=== PATIENT | male | born 1965 | race Caucasian/White ===

== ENCOUNTER → 2024-01-08 | Outpatient (CLI) | payer OTHER ==
--- NOTE | 2024-01-08 22:26 | US ---
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 This may contain a small echogenic nodule b ut otherwise has a simple appearance. Left Kidney: wnl Bladder: Anechoic Bilateral Jets seen: Yes Normal Post Void Residual: Yes IMPRESSION: Large cyst inferior pole right kidney with small internal echogenic nodule. Monitoring is recommended .
== END | disposition home or self-care (01) ==
LOC: RADUSWWP 15:46
PROVIDERS: ATTEND Family Medicine
DX: N28.1 Cyst of kidney, acquired (principal)
CPT/HCPCS: 76770

== ENCOUNTER 2024-07-10 10:42 | Day surgery (SDC) | payer OTHER ==
--- NOTE | 2024-07-08 14:34 | P.PN ---
Progress Note - Text Progress Note Date: 07/08/24 Labs from outside facility reviewed with elevated WBC for possible infection. I called and left message that infection is contraindicated for surgery and may need to be rescheduled. May opt for repeat CBC on day of procedure. If WBC still elevated, case will need to be rescheduled
--- NOTE | 2024-07-09 08:55 | P.PN ---
Progress Note - Text Progress Note Date: 07/09/24 Patient contacted at home. Patient has history of persistent elevated white blood cell count since 2009. He has seen specialist regarding his persistent leukocytosis. Patient also confirms multiple instrumentation with back surgery with pre-existing history of elevated white blood cell count. Patient denies any active flu, urinary tract infection, chronic cough. Will repeat CBC for his baseline between 13,000-14,000. Overall, patient agreeable to proceed with surgery with his pre-existing elevated white blood count.
--- NOTE | 2024-07-10 06:30 | P.GSHP ---
History of Present Illness H&P Date: 07/10/24 CHIEF COMPLAINT: Ventral hernia HISTORY OF PRESENT ILLNESS: The patient is a 58-year-old male presents with a history of swelling and pain along the abdomen from a hernia of the abdomen. Symptoms have been present for over 6 months. Incidentally, patient has persistent elevated white blood cell count which has been previously assessed by specialist. Now he presents for surgical intervention. PAST MEDICAL HISTORY: Please see list. PAST SURGICAL HISTORY: Please see list. MEDICATIONS: Please see list. ALLERGIES: Please see list. SOCIAL HISTORY: No illicit drug use FAMILY HISTORY: No reports of Crohn disease or ulcerative colitis. REVIEW OF ORGAN SYSTEMS: CONSTITUTIONAL: Denies any fever or chills. Denies recent weight loss or weight gain. HEENT: Denies any trouble with vision, hearing or nosebleeds. No difficulty swallowing. LYMPHATIC: The patient denies any lumps and bumps around the neck. ENDOCRINE: Denies any thyroid disorders. Denies any blood sugar glucose intolerance. RESPIRATORY: Denies pneumonia. Denies any troubles with breathing or dyspnea on exertion. CARDIOVASCULAR: Denies any chest pain, palpitations, or recent heart attacks. GASTROINTESTINAL: Denies heart burn, constipation or bright red blood per rectum. GENITOURINARY: Denies any blood in urine or increased urinary frequency. MUSCULOSKELETAL: Denies any back pain, stiffness, joint arthritis. NEUROLOGIC: Denies any numbness or tingling along the distal extremities. No se izure disorders or headaches. PSYCHIATRIC: Denies depression or suidical ideation. HEMATOLOGIC: Denies any abnormal bleeding or bruising. BREASTS: Denies any breast lumps, pain or nipple discharge. PHYSICAL EXAM: GENERAL: Well-developed pleasant male in no acute distress. HEENT: No scleral icterus. Extraocular movements grossly intact. Moist buccal mucosa. NECK: Supple without lymphadenopathy. CHEST: Unlabored respirations. Equal bilateral excursions. CARDIOVASCULAR: Regular rate and rhythm. Distal 2+ pulses. ABDOMEN: Soft, nondistended. Palpable defect of the abdomen. No peritoneal signs. MUSCULOSKELETAL: No clubbing, cyanosis, or edema. SKIN: Well perfused. PSYCH: Alert and oriented to self, place and time ASSESSMENT: 1. Ventral hernia 2. Persistent leukocytosis PLAN: 1. Recommend proceeding with robotic ventral hernia repair with mesh. 2. Benefits and risks of surgical intervention was discussed including possibility of open technique. 3. DVT prophylaxis. 4. Antibiotic prophylaxis. 5. Non narcotic pain management including abdominal wall block described 6. Blood sugar glucose described. 7. Weight loss management described. 8. EKG reviewed unremarkable 9. Repeat CBC and CMP on day of procedure 10. Flomax for prevention of urinary retention Past Medical History Past Medical History: GERD/Reflux, Osteoarthritis (OA), Skin Disorder Additional Past Medical History / Comment(s): ventral hernia. treated since 2008 for skin issues. on doxycycline prn . 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 chronic mildlly elevated WBC. History of Any Multi-Drug Resistant Organisms: MRSA Date of last positivie culture/infection: 2008 MDRO Source:: back Past Surgical History: Back Surgery, Heart Catheterization Additional Past Surgical History / Comment(s): 2 egds. TENS unit placed and removed due to MRSA. per cardiology hx pt had heart cath 2018 in [facility] Past Anesthesia/Blood Transfusion Reactions: No Reported Reaction Additional Past Anesthesia/Blood Transfusion Reaction / Comment(s): no blood transfusions. Smoking Status: Former smoker - Past Family History Mother Family Medical History: Coronary Artery Disease (CAD) Father Family Medical History: Coronary Artery Disease (CAD) Sister(s) Family Medical History: Coronary Artery Disease (CAD) Medications and Allergies Home Medications Medication Instructions Recorded Confirmed Type Acetaminophen Tab [Tylenol] 325 mg PO DIRECTED PRN 07/06/24 07/06/24 History Doxycycline [Vibramycin] 50 mg PO Q12HR PRN 07/06/24 07/06/24 History Omeprazole 40 mg PO DAILY 07/06/24 07/06/24 History Unk Folic Acid 1 tab PO DAILY 07/06/24 07/06/24 History Unk Iron 1 tab PO DAILY 07/06/24 07/06/24 History Unk Vitamin C 1 tab PO DAILY 07/06/24 07/06/24 History Unk Vitamin D 1 tab PO DAILY 07/06/24 07/06/24 History Allergies Allergy/AdvReac Type Severity Reaction Status Date / Time No Known Allergies Allergy Verified 07/06/24 11:39
[2024-07-10] MEDS: IV FLUID CONTINUATION 1,000 ML IV ONE ×2 (11:21→15:22)
[2024-07-10] MEDS: LACTATED RINGERS 1,000 ML IV SCH (11:34)
[2024-07-10] MEDS: MIDAZOLAM 2 MG/2 ML VIAL IV PRN (11:36)
[2024-07-10] MEDS: MELOXICAM 7.5 MG TAB PO PRN (11:43)
[2024-07-10] MEDS: TAMSULOSIN 0.4 MG CAP.ER.24H PO STA (11:43)
[2024-07-10] MEDS: ACETAMINOPHEN TAB 500 MG TAB PO PRN (11:43)
[2024-07-10] MEDS: HEPARIN SODIUM,PORCINE 5,000 UNIT/ML 1 ML VIAL SQ PRN (11:44)
[2024-07-10] MEDS: ONDANSETRON 4 MG/2 ML VIAL IVP PRN (11:44)
[2024-07-10] MEDS ORDERED: SODIUM CHLORIDE 0.9% (PF) 10 ML VIAL ONE (11:54)
[2024-07-10] MEDS ORDERED: PROPOFOL 10 MG/ML 20 ML VIAL IV ONE (11:54)
[2024-07-10] MEDS ORDERED: LIDOCAINE 1% INJ 10MG/ML (20 ML MDV) ONE (11:54)
[2024-07-10] MEDS ORDERED: HYDROmorphone (PF) 1 MG/ML ONE (11:54)
[2024-07-10] MEDS ORDERED: ROCURONIUM 10 MG/ML (5 ML VIAL) IV ONE (11:54)
[2024-07-10] MEDS ORDERED: fentaNYL (PF) 50 MCG/ML 2 ML AMP ONE (11:54)
[2024-07-10] MEDS ORDERED: ePHEDrine 50 MG/ML 1 ML VIAL ONE (11:54)
[2024-07-10] MEDS ORDERED: GLYCOPYRROLATE 0.2 MG/ML 2 ML VIAL ONE (11:54)
[2024-07-10] MEDS ORDERED: ROPIVACAINE 5 MG/ML 30 ML VIAL ONE (11:54)
[2024-07-10] MEDS ORDERED: NEOSTIGMINE 1 MG/ML 10 ML VIAL ONE (11:54)
[2024-07-10] MEDS ORDERED: DEXAMETHASONE SOD PHOSPHATE 4 MG/ML 1 ML VIAL ONE (11:54)
[2024-07-10] MEDS ORDERED: KETOROLAC 15 MG/ML 1 ML VIAL ONE (11:54)
[2024-07-10] MEDS ORDERED: SUCCINYLCHOLINE CHLORIDE 200 MG/10 ML VIAL IV ONE (11:54)
[2024-07-10 12:00] LABS: Basophils # (A) 0.1 k/uL (0-0.2); Basophils % (A) 1 %; Eosinophils # (A) 0.6 k/uL (0-0.7); Eosinophils % (A) 4 %; HCT 51.3 % (39.0-53.0); HGB 17.2 gm/dL (13.0-17.5); Lymphocytes # (A) 2.1 k/uL (1.0-4.8); Lymphocytes % (A) 16 %; MCH 32.4 pg (25.0-35.0); MCHC 33.6 g/dL (31.0-37.0); MCV 96.4 fL (80.0-100.0); Mean Platelet Volume 8.4; Monocytes # (A) 0.5 k/uL (0-1.0); Monocytes % (A) 4 %; Neutrophils # (A) 10.2 k/uL (1.3-7.7); Neutrophils % (A) 74 %; Platelet Count 279 k/uL (150-450); RBC 5.32 m/uL (4.30-5.90); RDW 13.5 % (11.5-15.5); WBC 13.7 k/uL (3.8-10.6)
[2024-07-10 12:04] LABS: ALT 19 U/L (4-49); African American GFR (CKD) >90 (>60 ml/min/1.73 sqM); Albumin 4.6 g/dL (3.5-5.0); Anion Gap 7 mmol/L; Blood Urea Nitrogen 11 mg/dL (9-20); Calcium 9.7 mg/dL (8.4-10.2); Carbon Dioxide 24 mmol/L (22-30); Chloride 108 mmol/L (98-107); Glucose 92 mg/dL (74-99); Non-African American GFR(CKD) >90 (>60 ml/min/1.73 sqM); Sodium 139 mmol/L (137-145); Total Bilirubin 0.7 mg/dL (0.2-1.3); Total Protein 7.2 g/dL (6.3-8.2)
[2024-07-10 12:07] LABS: Potassium 4.5 mmol/L (3.5-5.1)
[2024-07-10 12:08] LABS: AST 25 U/L (17-59); Alkaline Phosphatase 71 U/L (38-126)
--- NOTE | 2024-07-10 12:34 | P.ANPRN ---
Procedure Note - Anesthesia - Nerve Block Performed Bilateral Erector Spinae Single Time Out Performed: Yes Date of Procedure: 07/10/24 Procedure Start Time: :36 Procedure Stop Time: :42 Location of Patient: PreOp Indication: Acute Post-Operative Pain, Requested by Surgeon Sedation Type: Sedate with meaningful contact maintained Preparation: Sterile Prep Position: Prone Needle Types: Pajunk Needle Gauge: 21 Ultrasound used to visualize needle placement: Yes Ultrasound used to observe medication spread: Yes Injectate: 0.5% Ropivacaine (see comment for volume) (20 ml + 10 ml NS + 4 mg Dexamethasone per side) Blood Aspirated: No Pain Paresthesia on Injection Noted: No Resistance on Injection: Normal Image Stored and Saved: Yes Events: Uneventful and Well Tolerated
[2024-07-10] MEDS: LIDOCAINE 1%-EPI 1:100,000 20 ML VIAL SQ ONE (12:38)
[2024-07-10 13:40] VITALS: TEMP 97.6
[2024-07-10] MEDS: HYDROmorphone 0.5 MG/0.5 ML SYRINGE IVP PRN (13:44)
[2024-07-10 14:56] VITALS: RESP 18
[2024-07-10] MEDS: HYDROcodone/APAP 5-325MG 1 EACH TAB PO STA (15:18)
[2024-07-10 16:56] VITALS: BP 118/70; PULSE 80
--- NOTE | 2024-07-18 21:23 | P.OP ---
Date of Procedure: 07/10/24 Description of Procedure: SURGEON: ANDREINA ROSE MD PREOPERATIVE DIAGNOSES: 1. Initial incarcerated umbilical hernia 2. Gastroesophageal reflux disease 3. Chronic leukocytosis 4. History of MRSA 5. Chronic skin disorder POSTOPERATIVE DIAGNOSES: 1. Initial incarcerated umbilical hernia 2. Gastroesophageal reflux disease 3. Chronic leukocytosis 4. History of MRSA 5. Chronic skin disorder OPERATION: 1. Robotic-assisted da Elsa Xi laparoscopic repair of initial incarcerated umbilical hernia with mesh, ventralight ST mesh 11.4 cm Anesthesia: GETA, regional, local Estimated Blood Loss (ml): 5 Pathology: 1. Incarcerated umbilical hernia defect COMPLICATIONS: None. Operative Findings: 1. Umbilical hernia defect 2 x 3 cm 2. Fascia repaired using #1 V-lock suture INDICATIONS: The patient is a 58-year-old male who presents with pain and swelling of the umbilicus. Surgical intervention with laparoscopic versus robotic and open techniques were reviewed. Placement of mesh was also reviewed. Benefits and risks were thoroughly described. Informed consent was obtained. DESCRIPTION OF PROCEDURE: The patient was brought into the operating room and laid in supine position. After general induction, the abdomen had been prepped and draped in standard sterile fashion. Ioban draping was also placed. Prior to incision, a timeout protocol was confirmed with surgical team regarding the patient's name including procedures to be performed. The robot was primed prior to the procedure. A field block using local anesthetic was placed along hernia site including the proposed port sites. Initial incision was made with an #11 blade along the left upper quadrant. A 0 degree 5 mm laparoscopic trocar entry was performed and insufflated. Three 8 mm ports were placed along the left lateral abdominal wall under direct localization after exchanging the 5-mm for an 8 mm port. Placements of the ports were 15 cm from the target anatomy and 10 cm apart. An accessory 12 mm port was placed at the left upper quadrant for exchange of mesh including sutures. The tu.nri Xi robot was previously primed, prepped and draped then docked from the right side of the patient onto the left side of the patient. I then sat at the robot [employer] Xi console where working arms of the robot including Bovie cautery connected to robotic scissors, needle limousine driver, and graspers placed by the internal medicine physician assistant. Incarcerated omental contents were found along the umbilicus. The defects were reduced of preperitoneal fat. Distinct fascial defects were found umbilical hernia defect 2 x 3 cm. The incarcerated contents were reduced as the peritoneal fat was cleaned from the abdominal wall. Next, hemostasis was checked with cautery. The hernia defects were oversewn using #1 nonabsorbable V-lock suture with fascial imbrication x 2. Next, ventralight ST mesh 11.4 cm was placed with the rough side towards the abdominal wall as to cover the umbilical defect. 2-0 VLOC 9 inch absorbable sutures were used to fixate the mesh. A final endoscopic imaging was obtained. All instruments and pneumoperitoneum were evacuated from the abdominal cavity. The da Elsa Xi robot was undocked from the patient. I re-scrubbed into the case for closure of incisions. The fascia of the 12-mm port was probed and less than 8-mm in size. The incisions were reapproximated using 4-0 Monocryl in an interrupted subcuticular fashion. Liquid glue was applied to the skin after cleansing the skin with normal saline and dilute hydrogen peroxide. An abdominal binder was placed. An umbilical dressing was placed prior. At the end of the procedure, needle, sponge, and instrument count had been verified correct by surgical product sales consultant. The patient was taken to the postanesthesia care unit in stable condition. Plan - Discharge Summary Discharge Rx Participant: No New Discharge Prescriptions: New Simethicone [Gas-X] 125 mg PO AC-TID PRN #20 capsule PRN Reason: Pain Ibuprofen [Motrin] 600 mg PO Q8HR PRN #30 tab PRN Reason: Pain Acetaminophen Tab [Tylenol Tab] 1,000 mg PO Q6HR PRN #30 tablet PRN Reason: Pain Continue Omeprazole 40 mg PO DAILY Unk Vitamin C 1 tab PO DAILY Doxycycline [Vibramycin] 50 mg PO Q12HR PRN PRN Reason: skin issues Unk Vitamin D 1 tab PO DAILY Unk Iron 1 tab PO DAILY Unk Folic Acid 1 tab PO DAILY Discontinued Acetaminophen Tab [Tylenol] 325 mg PO DIRECTED PRN PRN Reason: Pain Discharge Medication List Doxycycline [Vibramycin] 50 mg PO Q12HR PRN 07/06/24 [History] Omeprazole 40 mg PO DAILY 07/06/24 [History] Unk Folic Acid 1 tab PO DAILY 07/06/24 [History] Unk Iron 1 tab PO DAILY 07/06/24 [History] Unk Vitamin C 1 tab PO DAILY 07/06/24 [History] Unk Vitamin D 1 tab PO DAILY 07/06/24 [History] Acetaminophen Tab [Tylenol Tab] 1,000 mg PO Q6HR PRN #30 tablet 07/10/24 [Rx] Ibuprofen [Motrin] 600 mg PO Q8HR PRN #30 tab 07/10/24 [Rx] Simethicone [Gas-X] 125 mg PO AC-TID PRN #20 capsule 07/10/24 [Rx] Follow up Appointment(s)/Referral(s): Andreina Rose MD [STAFF PHYSICIAN] - 07/14/24 3:30 pm Patient Instructions/Handouts: *Surgery [facility] - (Anesthesia) Discharge Instructions Outpatient Surgery, Abdominal Binder (DC), Ventral Hernia Repair (GEN) Activity/Diet/Wound Care/Special Instructions: TELEHEALTH - DR WILL CALL YOU BETWEEN 9 am to 8 pm DO NOT REMOVE UMBILICAL DRESSING. NO LONG DRIVES OR AIRPLANE RIDES OVER 60 MINUTES FOR THE NEXT 2 WEEKS, 07/24/24, DUE TO HIGH RISK OF PULMONARY EMBOLISM/DVTs Using antibacterial soap. No lifting over 4 pounds 4 weeks, 08/09/[address] in 72 hours, 07/13/24 May shower. No bathtub soaks for 2 weeks, 07/24/24 Wear abdominal binder daily for comfort except for showering. Use ice along incisions for today to prevent swelling. Take tylenol, aleve/ibuprofen, simethicone scheduled for 3 days for best pain relief Discharge Disposition: HOME SELF-CARE
== END 2024-07-10 17:14 | disposition home or self-care (01) ==
LOC: OR 10:42
PROVIDERS: ATTEND Surgery Plastic and Reconstructive Surgery
DX: K42.0 Umbilical hernia with obstruction, without gangrene (principal); G89.18 Other acute postprocedural pain; D72.829 Elevated white blood cell count, unspecified; K21.9 Gastro-esophageal reflux disease without esophagitis; L98.8 Other specified disorders of the skin and subcutaneous tissue; I25.10 Atherosclerotic heart disease of native coronary artery without angina pectoris; R06.09 Other forms of dyspnea; Z79.899 Other long term (current) drug therapy; Z86.14 Personal history of Methicillin resistant Staphylococcus aureus infection; Z87.891 Personal history of nicotine dependence; Z98.890 Other specified postprocedural states; Z82.49 Family history of ischemic heart disease and other diseases of the circulatory system
CPT/HCPCS: 49594; S2900; 64999; 80053; 85025; 88302